=== PATIENT | male | born 1940 | race Caucasian/White ===

== ENCOUNTER → 2020-08-24 | Outpatient (CLI) | payer OTHER ==
--- NOTE | 2020-08-24 15:11 | RAD ---
Examination: 1. Bilateral standing AP knees. 2. Bilateral knees sunrise and lateral views INDICATION: Knee pain FINDINGS: The bilateral standing AP knees show bilateral knee arthroplasties and arteriogram vascular calcifica tions. There is mild lucency around the medial femoral condyle component of the femoral prosthesis. The lateral and sunrise views of both knees confirm the presence of lucency around the medial femoral condyles of the femoral prostheses. No fracture or aggressive bony lesions are seen. There is prepat ellar soft tissue swelling in the left knee and bulky bony hypertrophy in the tibial tuberosity. IMPRESSION: Bilateral knee arthroplasty with lucency around the femoral prostheses bilaterally in the medial femo ral condyles. Correlate for any clinical evidence of hardware loosening. Three-phase bone scan could be considered in further evaluation if clinically warranted. Electronically signed by: Swetha Dailey MD (08/24/2020 3:09 PM) [id number]
== END ==
LOC: RAD 10:34
PROVIDERS: ATTEND Orthopaedic Surgery
DX: M25.561 Pain in right knee (principal); M25.562 Pain in left knee
CPT/HCPCS: 73560; 73565